=== PATIENT | female | born 1955 | race Caucasian/White ===

== ENCOUNTER → 2016-12-15 | Outpatient (CLI) | payer BC ==
[~2016-12-15] MED LIST: CALCIUM CARBON650 M2 PO; IRON325 M2 PO; KLONOPIN2 MG PO; MULTIPLE VITAMI1 CAP PO; PRILOSEC 20MG20 MG PO; PRINIVIL20 MG PO; PROZAC40 MG PO; VITAMIN D1000 IU PO; WELLBUTRIN XL300 M1 PO; ZOCOR 10MG10 MG PO; [UNRECOGNIZED DRUG - OTHER] TP
== END ==
LOC: BHSO 08:55
DX: F33.42 Major depressive disorder, recurrent, in full remission (principal)

== ENCOUNTER → 2017-03-14 | Outpatient (CLI) | payer BC | LOC: BHSO 08:30 | DX: F41.1 Generalized anxiety disorder (principal) ==

== ENCOUNTER 2017-05-11 14:15 | Day surgery (SDC) | payer BC ==
[~2017-05-11] VITALS: Ht 170.2 cm; Wt 98.6 kg
[2017-05-11 14:33] VITALS: BP 144/87; PULSE 81; TEMP 98.2
[2017-05-11] MEDS ORDERED: PRILOSEC 20MG20 MG PO (15:05)
[2017-05-11] MEDS ORDERED: PRINIVIL20 MG PO (15:07)
[2017-05-11] MEDS ORDERED: [UNRECOGNIZED DRUG - OTHER] TP (15:07)
[2017-05-11] MEDS ORDERED: ZOCOR 10MG10 MG PO (15:08)
[2017-05-11] MEDS ORDERED: PROZAC40 MG PO (15:09)
[2017-05-11] MEDS ORDERED: WELLBUTRIN XL300 M1 PO (15:09)
[2017-05-11] MEDS ORDERED: KLONOPIN2 MG PO (15:10)
[2017-05-11] MEDS ORDERED: CALCIUM CARBON650 M2 PO (15:11)
[2017-05-11] MEDS ORDERED: VITAMIN D1000 IU PO (15:11)
[2017-05-11] MEDS ORDERED: IRON325 M2 PO (15:12)
[2017-05-11] MEDS ORDERED: MULTIPLE VITAMI1 CAP PO (15:12)
[2017-05-11 16:40] VITALS: BP 139/81; PULSE 80
[2017-05-11 16:55] VITALS: BP 129/85; PULSE 79
[2017-05-11 17:10] VITALS: BP 139/74; PULSE 81
[2017-05-11 17:25] VITALS: BP 137/79; PULSE 79
== END 2017-05-11 17:30 | disposition home or self-care (01) ==
LOC: SDCO 14:15
DX: K57.30 Diverticulosis of large intestine without perforation or abscess without bleeding (principal); K21.9 Gastro-esophageal reflux disease without esophagitis; D50.9 Iron deficiency anemia, unspecified; F32.9 Major depressive disorder, single episode, unspecified; E11.9 Type 2 diabetes mellitus without complications; R19.5 Other fecal abnormalities; Z98.84 Bariatric surgery status; Z90.79 Acquired absence of other genital organ(s); Z90.710 Acquired absence of both cervix and uterus
CPT/HCPCS: J2250; J2405; J3010; J7030

== ENCOUNTER → 2017-06-18 | Outpatient (CLI) | payer BC | LOC: BHSO 08:15 | DX: F33.41 Major depressive disorder, recurrent, in partial remission (principal) ==

== ENCOUNTER 2017-07-02 10:15 | Outpatient (RCR) | payer BC | END 2017-08-16 16:05 | LOC: WSPT 10:15 | DX: M19.011 Primary osteoarthritis, right shoulder (principal) ==

== ENCOUNTER → 2017-09-17 | Outpatient (CLI) | payer BC | LOC: BHSO 08:18 | DX: F33.42 Major depressive disorder, recurrent, in full remission (principal) ==

== ENCOUNTER → 2018-03-18 | Outpatient (CLI) | payer BC | LOC: BHSO 08:03 | DX: F33.42 Major depressive disorder, recurrent, in full remission (principal) | CPT/HCPCS: G0463 ==

== ENCOUNTER → 2018-09-17 | Outpatient (CLI) | payer BC | LOC: BHSO 07:56 | DX: F41.1 Generalized anxiety disorder (principal) | CPT/HCPCS: G0463 ==

== ENCOUNTER → 2019-03-05 | Outpatient (CLI) | payer MEDICARE, OTHER | LOC: BHSO 07:54 | DX: F33.42 Major depressive disorder, recurrent, in full remission (principal) | CPT/HCPCS: G0463 ==

== ENCOUNTER → 2019-09-03 | Outpatient (CLI) | payer MEDICARE, OTHER | LOC: BHSO 08:00 | DX: F33.41 Major depressive disorder, recurrent, in partial remission (principal) | CPT/HCPCS: G0463 ==

== ENCOUNTER → 2020-04-22 | Outpatient (CLI) | payer MEDICARE, OTHER | LOC: BHSO 08:37 | DX: F41.1 Generalized anxiety disorder (principal) | CPT/HCPCS: G0463 ==